=== PATIENT | male | born 1990 | race Caucasian/White ===

== ENCOUNTER 2021-02-04 02:45 | Day surgery (SDC) | payer OTHER ==
[~2021-02-04] VITALS: Ht 170.2 cm; Wt 61.0 kg
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
[2021-02-04] MEDS ORDERED: MORPHINE SULFATE 4 MG/ML, 1ML IVPush PRN (03:00)
[2021-02-04] MEDS ORDERED: ONDANSETRON 2MG/ML, 2ML IVPush ONE (03:00)
--- NOTE | 2021-02-04 03:12 | NUR ---
REVIEWED POC W/ PT; LABS ALREADY DRAWN. PT IS AWARE WE NEED URINE SAMPLE, URINAL PROVIDED FOR PT. PT IS AWARE THAT MD ORDERED ZOFRAN AND MORPHINE FOR HIM, BUT PT DENIES NAUSEA AT THIS TIME AND PAIN IS 4/10 AND HE DOESN'T WANT THE MEDICATION AT THIS TIME. ENCOURAGED PT TO NOTIFY STAFF IF PAIN/NAUSEA WORSEN AND HE WANTS MEDICATION. S.O. BEDSIDE W/ PT, PETROS, CALL LIGHT W/IN REACH.
[2021-02-04 03:14] LABS: BASOPHILS % (AUTO) 1 % (0-1); EOSINOPHILS % (AUTO) 0 % (1-7); LYMPHOCYTES % (AUTO) 14 % (22-44); MEAN CORPUSCULAR HGB CONC 34.6 g/dL (33.2-36.2); MEAN PLATELET VOLUME 6.8 fL (7.4-10.4); MONOCYTES % (AUTO) 8 % (2-9); NEUTROPHILS % (AUTO) 77 % (42-75); PLATELET COUNT 252 x10^3/uL (130-400); RED CELL DISTRIBUTION WIDTH 12.8 % (9.4-14.8)
[2021-02-04 03:21] LABS: ALANINE AMINOTRANSFERASE 23 U/L (12-78); ALBUMIN 4.3 g/dL (3.4-5.0); ANION GAP 5 mmol/L (5-15); CALCIUM 8.9 mg/dL (8.5-10.1); CHLORIDE 109 mmol/L (98-107); CREATININE 0.85 mg/dL (0.7-1.3)
[2021-02-04 03:23] LABS: ALKALINE PHOSPHATASE 50 U/L (45-117); BILIRUBIN,TOTAL 0.6 mg/dL (0.2-1.0); TOTAL PROTEIN 7.6 g/dL (6.4-8.2)
--- NOTE | 2021-02-04 03:27 | NUR ---
PT LAYING IN GURNEY, SO BEDSIDE. PEGGYN, CALL LIGHT W/IN REACH.
--- NOTE | 2021-02-04 03:42 | NUR ---
PT TO CT
--- NOTE | 2021-02-04 03:59 | NUR ---
PT RETURNED FROM CT, REPORTED W/ CT PAIN WENT 8/10, BUT NOW BACK IN RNEY NOT MOVING PAIN IS 4/10. DECLINED MEDICATION AT THIS TIME. JAS, ALAN. CALL LIGHT W/IN REACH.
--- NOTE | 2021-02-04 04:01 | NUR ---
PT DENIES URGE TO VOID AND DOESN'T FEEL HE CAN PROVIDE SAMPLE AT THIS TIME. ENCOURAGED PT TO TRY AND TOLD HIM EVEN A SMALL AMOUNT WORKS.
--- NOTE | 2021-02-04 04:45 | NUR ---
PT RESTING IN ALAN TREJO. HE WAS INSTRUCTED TO TRY AND PEE, EVEN THOUGH HE DENIES THE NEED. WILL RETURN TO SEE IF HE WAS ABLE TO PROVIDE SAMPLE. S.O. BEDSIDE, CALL LIGHT W/IN REACH.
--- NOTE | 2021-02-04 04:56 | NUR ---
PT ABLE TO PROVIDE URINE SAMPLE, COLLECTED AND SENT TO LAB. PT DENIES NEEDING ANYTHING, NADN. CALL LIGHT W/IN REACH.
[2021-02-04 05:15] LABS: MICROSCOPIC NOT IND
[2021-02-04] MEDS ORDERED: OMNIPAQUE 350 MG/ML, 100ML BOTTLE ONE (06:02)
[2021-02-04] MEDS ORDERED: ONDANSETRON 2MG/ML, 2ML ONE (06:18)
[2021-02-04] MEDS ORDERED: MORPHINE SULFATE 4 MG/ML, 1ML ONE (06:19)
--- NOTE | 2021-02-04 06:29 | NUR ---
PT MEDICATED PER OCT. AALN MARK. FAMILY BEDSIDE. CALL LIGHT W/IN REACH.
--- NOTE | 2021-02-04 06:42 | NUR ---
SURGEON BEDSIDE NOW
--- NOTE | 2021-02-04 06:56 | NUR ---
[facility].
[2021-02-04] MEDS ORDERED: ROSU20TA2 PO (08:22)
[2021-02-04 09:25] VITALS: BP 126/76
[2021-02-04] MEDS ORDERED: EPINEPHRINE 1 MG/ML, 1ML ONE (12:21)
[2021-02-04] MEDS ORDERED: BUPIVACAINE/PF 0.5% ONE (12:21)
[2021-02-04] MEDS ORDERED: CHLORHEXIDINE 15 ML UDC ONE (13:05)
[2021-02-04] MEDS ORDERED: MIDAZOLAM 1 MG/ML, 2ML ONE (13:18)
[2021-02-04] MEDS ORDERED: FENTANYL PF 250 MCG/5ML ONE (13:18)
[2021-02-04] MEDS ORDERED: FENTANYL PF 100 MCG/2ML ONE (13:19)
[2021-02-04] MEDS ORDERED: CHLORHEXIDINE 15 ML UDC PO ONE (13:30)
[2021-02-04] MEDS ORDERED: CEFOTETAN 2 GM ONE (13:44)
[2021-02-04] MEDS ORDERED: LIDOCAINE 1%, 20ML ONE (13:44)
[2021-02-04] MEDS ORDERED: PROPOFOL 10 MG/ML, 20ML ONE (13:44)
[2021-02-04] MEDS ORDERED: ROCURONIUM 10 MG/ML,10ML ONE (13:44)
[2021-02-04] MEDS ORDERED: DEXAMETHASONE 4 MG/ML, 1ML ONE (13:44)
[2021-02-04] MEDS ORDERED: ACET325T26 PO (14:21)
[2021-02-04] MEDS ORDERED: OXYC5TAB2 PO (14:21)
[2021-02-04] MEDS ORDERED: DOCU100C33 PO (14:21)
[2021-02-04] MEDS ORDERED: ACETAMINOPHEN 325 MG TABLET PO PRN (14:30)
[2021-02-04] MEDS ORDERED: OXYcodone 5 MG/5 ML ORAL.SOL UDC PO PRN ×2 (14:30→17:30)
[2021-02-04] MEDS ORDERED: FENTANYL PF 100 MCG/2ML IV PRN (14:30)
[2021-02-04] MEDS ORDERED: HYDROmorphone 1 MG/ML, 1ML INJ IVPush PRN (14:30)
[2021-02-04] MEDS ORDERED: MEPERIDINE/PF 25MG/0.5ML IVPush PRN (14:30)
[2021-02-04] MEDS ORDERED: PROMETHAZINE 25 MG SUPP PR PRN (14:30)
[2021-02-04] MEDS ORDERED: PROMETHAZINE 25 MG/ML, 1ML IVPush PRN (14:30)
[2021-02-04] MEDS ORDERED: METHOCARBAMOL 1,000 MG in DEXTROSE 5% 100 ML IV PRN (14:30)
[2021-02-04] MEDS ORDERED: LORazepam 2 MG/ML, 1ML IVPush PRN (14:30)
[2021-02-04] MEDS ORDERED: ONDANSETRON 2MG/ML, 2ML IVPush PRN ×2 (14:30→17:30)
[2021-02-04] MEDS ORDERED: OXYcodone 5 MG/5 ML ORAL.SOL UDC ONE (14:56)
[2021-02-04] MEDS ORDERED: MEPERIDINE/PF 25MG/ML,1ML ONE (14:56)
[2021-02-04 15:53] VITALS: BP 126/78
[2021-02-04] MEDS ORDERED: IBUP-1222 PO (17:27)
[2021-02-04] MEDS ORDERED: DIPHENHYDRAMINE 50 MG/ML, 1ML IVPush PRN (17:30)
[2021-02-04] MEDS ORDERED: HYDROmorphone 2 MG/ML, 1ML IV PRN (17:30)
[2021-02-04] MEDS ORDERED: KETOROLAC 30 MG/1 ML IV PRN (17:30)
[2021-02-04] MEDS ORDERED: LACTATED RINGERS 1,000 ML IV SCH (17:30)
[2021-02-04 17:50] VITALS: BP 126/64
== END 2021-02-04 18:10 | disposition home or self-care (01) ==
LOC: SDC 04:26 → ED 04:26 → 4NE 09:33 → UNDOADMIN 09:33 → UNDODISIN 18:10 → SDC 18:10 → EDSTATUS 19:50
PROVIDERS: ATTEND Emergency Medicine
DX: K35.80 Unspecified acute appendicitis (principal); E78.5 Hyperlipidemia, unspecified; Z20.822 Contact with and (suspected) exposure to COVID-19
CPT/HCPCS: 36415; 44970; 74177; 80053; 81003; 83690; 85025; 87635; 88304; 99285; J0171; J1100; J2175; J2250; J2270; J2405; J2704; J3010; Q9967; G0378